=== PATIENT | male | born 1930 | race Caucasian/White ===

== ENCOUNTER 2018-03-21 15:23 | Inpatient (IN) ==
[2018-03-22 12:06] VITALS: BP 130/62
== END 2018-03-22 16:28 | disposition home or self-care (01) | DRG 310 ==
LOC: N.ED 15:23 → N.EDINP 20:29 → N.2E 21:26
PROVIDERS: ADMIT Family Medicine; ATTEND Family Medicine

== ENCOUNTER 2020-05-21 09:51 | Inpatient (IN) ==
[2020-05-21] MEDS ORDERED: FLECAINIDE 50 MG TABLET PO ONE (10:16)
[2020-05-21 10:34] LABS: Basophils % 0.7 % (0.0-0.8); Eosinophils # 0.2 10*3/uL (0.0-0.87); Eosinophils % 3.7 % (0.00-10.9); Hematocrit 41.7 VOL% (42.0-52.0); Hemoglobin 13.2 GM/DL (14.0-18.0); Immature Granulocytes % 0.4 %; Immature Granulocytes Absolute 0.02 #; Lymphocytes # 1.2 10*3/uL (1.4-4.0); Lymphocytes % 20.4 % (21.2-54.2); Mean Corpuscular HGB Conc 31.7 GM/DL (32-36); Mean Platelet Volume 10.5 FL (9.6-12.0); Monocytes % 7.6 % (1.7-12.7); Neutrophils % 67.2 % (38.7-73.9); Platelet Count 149 T/CUMM (130-400); Red Blood Count 4.13 MC/CUMM (3.8-5.5); Red Cell Distribution Width 12.3 % (9.3-17.3); White Blood Count 5.7 T/CUMM (4-12)
[2020-05-21 10:49] LABS: INR 1.1; PT Patient Result 11.4 SECS (9.8-11.9); Partial Thromboplastin Time 29.6 SECS (23.9-33.8)
[2020-05-21 10:56] LABS: Anisocytosis 1+; Macrocytosis 1+; Platelet Estimate Adequate
[2020-05-21 10:57] LABS: Albumin 3.5 G/DL (3.4-5.0); Bilirubin,Total 0.6 MG/DL (0.2-1.0); Total Protein 6.5 G/DL (6.4-8.3)
[2020-05-21] MEDS ORDERED: METOPROLOL TARTRATE 5 MG/5 ML VIAL IV STA (11:25)
[2020-05-21] MEDS ORDERED: ZALEPLON 5 MG CAPSULE PO PRN (12:30)
[2020-05-21] MEDS ORDERED: diphenhydrAMINE CAP 25 MG CAPSULE PO PRN (12:30)
[2020-05-21] MEDS ORDERED: ONDANSETRON 4 MG/2 ML VIAL IV PRN (12:30)
[2020-05-21] MEDS ORDERED: ALUMINUM/MAGNES/SIMETH MAX STR 30 ML UDCUP PO PRN (12:30)
[2020-05-21] MEDS ORDERED: MAGNESIUM SULF RIDER 4 GM in PREMIX 1 EACH IV PRN (12:30)
[2020-05-21] MEDS ORDERED: MAGNESIUM SULF RIDER 2 GM in PREMIX 1 EACH IV PRN (12:30)
[2020-05-21] MEDS ORDERED: CETIRIZINE 10 MG TABLET PO PRN (12:33)
[2020-05-21] MEDS ORDERED: CODEINE PO PRN (12:33)
[2020-05-21] MEDS ORDERED: POLYETHYLENE GLYCOL POWDER 17 GM PACK PO PRN (12:33)
[2020-05-21] MEDS ORDERED: GUAIFENESIN PO PRN (12:33)
[2020-05-21] MEDS ORDERED: NITROGLYCERIN SL 0.4 MG TABLET SL PRN (12:33)
[2020-05-21] MEDS ORDERED: METOPROLOL TARTRATE 25 MG TABLET PO ONE (12:36)
[2020-05-21] MEDS ORDERED: MAGNESIUM SULF RIDER 2 GM in PREMIX 1 EACH IV ONE (15:32)
[2020-05-21] MEDS ORDERED: GLUCAGON 1 MG VIAL IM PRN (15:41)
[2020-05-21] MEDS ORDERED: DEXTROSE 50% 25 GM/50 ML VIAL IV PRN (15:41)
[2020-05-21] MEDS: INSULIN REGULAR 100 UNIT/ML SUBCUT SCH ×2 (16:16→20:04)
[2020-05-21] MEDS: MAGNESIUM CHLORIDE 64 MG TABLET PO SCH ×2 (16:16→20:22)
[2020-05-21] MEDS: METOPROLOL TARTRATE 25 MG TABLET PO SCH ×2 (17:20→23:30)
[2020-05-21] MEDS: APIXABAN 2.5 MG TABLET PO SCH (20:22)
[2020-05-21] MEDS: ASCORBIC ACID 500 MG TABLET PO SCH (20:22)
[2020-05-21] MEDS: FLECAINIDE 100 MG TABLET PO SCH (20:22)
[2020-05-22 05:26] LABS: Basophils # 0.1 10*3/uL (0.0-0.2); Basophils % 0.7 % (0.0-0.8); Eosinophils # 0.3 10*3/uL (0.0-0.87); Eosinophils % 3.7 % (0.00-10.9); Hematocrit 42.2 VOL% (42.0-52.0); Hemoglobin 13.4 GM/DL (14.0-18.0); Immature Granulocytes % 0.6 %; Immature Granulocytes Absolute 0.04 #; Lymphocytes # 1.5 10*3/uL (1.4-4.0); Lymphocytes % 22.5 % (21.2-54.2); Mean Corpuscular HGB Conc 31.8 GM/DL (32-36); Mean Corpuscular Volume 100.7 FL (87-102); Mean Platelet Volume 10.8 FL (9.6-12.0); Monocytes % 10.4 % (1.7-12.7); Neutrophils % 62.1 % (38.7-73.9); Platelet Count 146 T/CUMM (130-400); Red Blood Count 4.19 MC/CUMM (3.8-5.5); Red Cell Distribution Width 12.3 % (9.3-17.3); White Blood Count 6.8 T/CUMM (4-12)
[2020-05-22 05:54] LABS: Albumin 3.1 G/DL (3.4-5.0); Calcium 8.7 MG/DL (8.5-10.1); Osmolality,Calculated 287.1 MOS/KG (273-304); Total Protein 6.1 G/DL (6.4-8.3)
[2020-05-22] MEDS: METOPROLOL TARTRATE 25 MG TABLET PO SCH (06:05)
[2020-05-22] MEDS: INSULIN REGULAR 100 UNIT/ML SUBCUT SCH ×4 (08:07→21:30)
[2020-05-22] MEDS: FLECAINIDE 100 MG TABLET PO SCH ×2 (08:27→21:25)
[2020-05-22] MEDS: ASPIRIN EC 81 MG TABLET PO SCH (08:35)
[2020-05-22] MEDS: MAGNESIUM CHLORIDE 64 MG TABLET PO SCH ×3 (08:35→21:18)
[2020-05-22] MEDS: PANTOPRAZOLE 40 MG TABLET PO SCH (08:35)
[2020-05-22] MEDS: ASCORBIC ACID 500 MG TABLET PO SCH ×2 (08:36→21:19)
[2020-05-22] MEDS: LOSARTAN 50 MG TABLET PO SCH (08:36)
[2020-05-22] MEDS: APIXABAN 2.5 MG TABLET PO SCH ×2 (08:36→21:19)
[2020-05-22] MEDS: METOPROLOL TARTRATE 50 MG TABLET PO SCH (21:19)
[2020-05-23 06:38] LABS: Bilirubin,Total 0.8 MG/DL (0.2-1.0); Calcium 8.4 MG/DL (8.5-10.1); Osmolality,Calculated 288.3 MOS/KG (273-304); Total Protein 6.1 G/DL (6.4-8.3)
[2020-05-23] MEDS: INSULIN REGULAR 100 UNIT/ML SUBCUT SCH ×4 (08:19→21:35)
[2020-05-23] MEDS: ASPIRIN EC 81 MG TABLET PO SCH (08:30)
[2020-05-23] MEDS: ASCORBIC ACID 500 MG TABLET PO SCH ×2 (08:30→21:32)
[2020-05-23] MEDS: FLECAINIDE 100 MG TABLET PO SCH ×2 (08:30→21:32)
[2020-05-23] MEDS: MAGNESIUM CHLORIDE 64 MG TABLET PO SCH ×3 (08:30→21:32)
[2020-05-23] MEDS: PANTOPRAZOLE 40 MG TABLET PO SCH (08:30)
[2020-05-23] MEDS: APIXABAN 2.5 MG TABLET PO SCH ×2 (08:30→21:32)
[2020-05-23] MEDS ORDERED: DIGOXIN 0.25 MG TABLET PO ONE ×2 (09:02→12:00)
[2020-05-23] MEDS: METOPROLOL TARTRATE 50 MG TABLET PO SCH (09:11)
[2020-05-23] MEDS: LOSARTAN 50 MG TABLET PO SCH (09:11)
[2020-05-23] MEDS: BISOPROLOL 5 MG TABLET PO SCH ×2 (09:19→21:35)
[2020-05-23] MEDS ORDERED: SODIUM CHLORIDE 0.9% 1,000 ML IV SCH (11:00)
[2020-05-23] MEDS: ROSUVASTATIN 10 MG TABLET PO SCH (21:32)
[2020-05-24 05:48] LABS: Basophils % 0.6 % (0.0-0.8); Eosinophils # 0.3 10*3/uL (0.0-0.87); Eosinophils % 4.1 % (0.00-10.9); Hemoglobin 13.4 GM/DL (14.0-18.0); Immature Granulocytes % 0.3 %; Immature Granulocytes Absolute 0.02 #; Lymphocytes # 1.9 10*3/uL (1.4-4.0); Lymphocytes % 26.4 % (21.2-54.2); Mean Corpuscular HGB Conc 31.2 GM/DL (32-36); Mean Corpuscular Volume 102.9 FL (87-102); Mean Platelet Volume 11.2 FL (9.6-12.0); Monocytes % 8.6 % (1.7-12.7); Platelet Count 141 T/CUMM (130-400); Red Blood Count 4.18 MC/CUMM (3.8-5.5); Red Cell Distribution Width 12.2 % (9.3-17.3)
[2020-05-24 06:05] LABS: Bilirubin,Total 0.4 MG/DL (0.2-1.0); Calcium 8.8 MG/DL (8.5-10.1); Osmolality,Calculated 293.8 MOS/KG (273-304); Total Protein 6.2 G/DL (6.4-8.3)
[2020-05-24] MEDS: INSULIN REGULAR 100 UNIT/ML SUBCUT SCH ×3 (07:18→16:21)
[2020-05-24] MEDS ORDERED: PHENYLEPHRINE 1 MG/10 ML SYRINGE IV ONE (12:58)
[2020-05-24] MEDS ORDERED: propofoL 200 MG/20 ML VIAL IV ONE (12:58)
[2020-05-24] MEDS ORDERED: DIGOXIN 0.125 MG TABLET PO SCH (13:00)
[2020-05-24] MEDS: FLECAINIDE 100 MG TABLET PO SCH ×2 (13:46→21:18)
[2020-05-24] MEDS: PANTOPRAZOLE 40 MG TABLET PO SCH (13:47)
[2020-05-24] MEDS: BISOPROLOL 5 MG TABLET PO SCH ×2 (13:47→21:18)
[2020-05-24] MEDS: ASCORBIC ACID 500 MG TABLET PO SCH ×2 (13:47→21:17)
[2020-05-24] MEDS: MAGNESIUM CHLORIDE 64 MG TABLET PO SCH ×3 (13:47→21:18)
[2020-05-24] MEDS: ASPIRIN EC 81 MG TABLET PO SCH (13:48)
[2020-05-24] MEDS: APIXABAN 2.5 MG TABLET PO SCH ×2 (13:48→21:17)
[2020-05-24] MEDS: ROSUVASTATIN 10 MG TABLET PO SCH (21:18)
[2020-05-25] MEDS: INSULIN REGULAR 100 UNIT/ML SUBCUT SCH ×3 (02:41→12:33)
[2020-05-25 05:54] LABS: Basophils % 0.5 % (0.0-0.8); Eosinophils # 0.3 10*3/uL (0.0-0.87); Eosinophils % 4.1 % (0.00-10.9); Hemoglobin 12.3 GM/DL (14.0-18.0); Immature Granulocytes % 0.3 %; Immature Granulocytes Absolute 0.02 #; Lymphocytes # 1.4 10*3/uL (1.4-4.0); Lymphocytes % 22.1 % (21.2-54.2); Mean Corpuscular HGB Conc 31.5 GM/DL (32-36); Mean Corpuscular Volume 102.6 FL (87-102); Mean Platelet Volume 10.8 FL (9.6-12.0); Monocytes % 8.5 % (1.7-12.7); Neutrophils % 64.5 % (38.7-73.9); Platelet Count 146 T/CUMM (130-400); Red Cell Distribution Width 12.1 % (9.3-17.3); White Blood Count 6.1 T/CUMM (4-12)
[2020-05-25 06:28] LABS: Calcium 8.7 MG/DL (8.5-10.1); Osmolality,Calculated 287.1 MOS/KG (273-304)
[2020-05-25] MEDS: APIXABAN 2.5 MG TABLET PO SCH (09:18)
[2020-05-25] MEDS: MAGNESIUM CHLORIDE 64 MG TABLET PO SCH (09:18)
[2020-05-25] MEDS: BISOPROLOL 5 MG TABLET PO SCH (09:18)
[2020-05-25] MEDS: ASCORBIC ACID 500 MG TABLET PO SCH (09:18)
[2020-05-25] MEDS: FLECAINIDE 100 MG TABLET PO SCH (09:18)
[2020-05-25] MEDS: ASPIRIN EC 81 MG TABLET PO SCH (09:18)
[2020-05-25] MEDS: PANTOPRAZOLE 40 MG TABLET PO SCH (09:18)
[2020-05-25 11:39] VITALS: BP 102/54
== END 2020-05-25 12:20 | disposition home or self-care (01) | DRG 309 ==
LOC: N.ED 09:51 → N.EDINP 09:51 → N.TELES 14:44
PROVIDERS: ADMIT Internal Medicine Cardiovascular Disease; ATTEND Internal Medicine Cardiovascular Disease